=== PATIENT | male | born 1990 | race Caucasian/White ===

== ENCOUNTER 2017-10-28 13:37 | Emergency (ER) | payer OTHER ==
[~2017-10-28] VITALS: Ht 177.8 cm; Wt 81.6 kg
[2017-10-28 14:01] VITALS: Ht 177.8 cm; Wt 81.6 kg
[2017-10-28 15:49] LABS: BASOPHIL % 0.3 % (0-2); PLATELET COUNT 233 x10^3mcL (130-400); RED CELL DISTRIBUTION WIDTH 13.1 % (11.5-14.5)
[2017-10-28 16:08] LABS: CALCIUM 9.6 mg/dL (8.5-10.1); CHLORIDE SERUM 99 mmol/L (98-107); CREATININE SERUM 0.9 mg/dL (0.7-1.3); GFR1 > 60 mL/min; GLUCOSE SERUM 96 mg/dL (74-106); POTASSIUM SERUM 3.8 mmol/L (3.5-5.1); SODIUM SERUM 139 mmol/L (136-145)
[2017-10-28 16:14] LABS: ALBUMIN 4.6 g/dL (3.4-5.0); ALKALINE PHOSPHATASE 93 U/L (46-116); ALT/SGPT 46 U/L (16-63); AST/SGOT 45 U/L (15-37); BILIRUBIN TOTAL 0.9 mg/dL (0.20-1.00); LIPASE 64 IU/L (73-393)
[2017-10-28 16:15] LABS: TOTAL PROTEIN, SERUM 8.4 g/dL (6.4-8.2)
[2017-10-28 17:16] VITALS: BP 129/96
== END 2017-10-28 17:21 | disposition home or self-care (01) ==
LOC: ED 13:37
PROVIDERS: Emergency Medicine
DX: R11.10 Vomiting, unspecified (principal); R10.9 Unspecified abdominal pain
CPT/HCPCS: 36415; Q0162